=== PATIENT | male | born 2000 | race Caucasian/White ===

== ENCOUNTER 2019-04-27 19:27 | Emergency (ER) | payer BC ==
[2019-04-27 20:23] VITALS: BP 104/69
--- NOTE | 2019-04-27 21:02 | UC ---
GI Bleed HPI - HPI Summary HPI Summary: Pt has hx of ulcerative colitis and has not had flare ups in many years. His regular GI MD is in . He reports 3 days of abd cramping w/ 2 days of intermittent blood in stool. blood has stopped and he still has diarrhea that is interrupting his day. He has not had fevers but he fears this may worsen. denies any abd surgical intervention in the past. - History Of Current Complaint Chief Complaint: UCGI Stated Complaint: HX OF COLITIS- HAVING FLARE-UP Time Seen by Provider: 04/27/19 20:25 Hx Obtained From: Patient Severity: Blood-Streaked Stool, Bright Red Blood per Rectum Pain Intensity: 5 Pain Scale Used: 0-10 Numeric Character: Cramping Aggravating Factor(s): Bowel Movement Alleviating Factor(s): Other - nothing - Allergies/Home medications Allergies/Adverse Reactions: Allergies Allergy/AdvReac Type Severity Reaction Status Date / Time No Known Allergies Allergy Verified 04/27/19 20:16 Home Medications: Home Medications FluvoxaMINE (NF) [Fluvoxamine (NF)] 50 mg PO BEDTIME 04/27/19 [History Confirmed 04/27/19] risperiDONE [Risperidone] 2 mg PO BEDTIME 04/27/19 [History Confirmed 04/27/19] PMH/Surg Hx/FS Hx/Imm Hx Previously Healthy: Yes GI/ History: Other - UC - Surgical History Surgical History: None - Family History Known Family History: Positive: Non-Contributory - Social History Alcohol Use: Daily Substance Use Type: None Smoking Status (MU): Never Smoked Tobacco Review of Systems All Other Systems Reviewed And Are Negative: Yes Constitutional: Positive: Fatigue. Negative: Fever, Chills Skin: Negative: Rash Respiratory: Positive: Negative Cardiovascular: Positive: Negative Gastrointestinal: Positive: Abdominal Pain, Diarrhea, Other Musculoskeletal: Positive: Arthralgia Neurological: Positive: Weakness. Negative: Headache Physical Exam Triage Information Reviewed: Yes Appearance: Well-Appearing Vital Signs: Initial Vital Signs Temp 98.3 F 04/27/19 20:20 Pulse 74 04/27/19 20:20 Resp 16 04/27/19 20:20 BP 104/69 04/27/19 20:20 Pulse Ox 99 04/27/19 20:20 Vital Signs Reviewed: Yes Respiratory Exam: Normal Cardiovascular Exam: Normal Abdomen Description: Positive: Nontender, Soft. Negative: CVA Tenderness (R), CVA Tenderness (L) Bleed Course/Dx - Course Course Of Treatment: Abd cramping, blood in stool, diarrhea in a pt. with Ulcerative Colitis. Has not had any abd surgeries, no colostomy bag or fever. Has not had any flare ups for many years. Due to [facility] not having CT it is recommended he go to the Emergency Room given degree of acuity. He is stable at this point and vitals are good, no acute abd. He will go to ED. - Differential Dx/Diagnosis Differential Diagnosis/HQI/PQRI: Diverticulitis, Ulcerative Colitis, Other Provider Diagnosis: Stool bloody, Ulcerative colitis Discharge ED - Sign-Out/Discharge Documenting (check all that apply): Patient Departure All imaging exams completed and their final reports reviewed: No Studies - Discharge Plan Condition: Good Disposition: HOME-RECOMMEND TO ED Patient Education Materials: Ulcerative Colitis (ED) Forms: *School Release Referrals: No Primary Care Phys,NOPCP [Primary Care Provider] - Additional Instructions: Your condition requires imaging, preferably CAT Scan. We do not have that at this facility as discussed so it is my recommendation that you go to the Emergency Room. - Billing Disposition and Condition Condition: GOOD Disposition: Home-Recommend to ED - Attestation Statements Provider Attestation: I was available for consult. This patient was seen by the EN[facility]. The patient was not presented to , seen by or examined by me -Liliya Workman MD
== END 2019-04-27 20:50 | disposition home health service (06) ==
LOC: UCCORT 19:27
DX: K51.90 Ulcerative colitis, unspecified, without complications (principal); K92.1 Melena
CPT/HCPCS: 99201; G0463